=== PATIENT | female | born 1985 | race Caucasian/White ===

== ENCOUNTER 2016-04-19 12:47 | Emergency (ER) ==
[2016-04-19 12:59] VITALS: BP 111/72
[2016-04-19] MEDS ORDERED: NS 500 ML IV ONE (13:22)
[2016-04-19] MEDS ORDERED: PHENERGAN IV ONE (13:22)
[2016-04-19] MEDS ORDERED: SODIUM CHLORIDE 0.9% INJ ONE ×2 (13:22→14:43)
[2016-04-19] MEDS ORDERED: TORADOL IV ONE (13:22)
[2016-04-19 13:45] LABS: MANUAL DIFF NEEDED? NO
[2016-04-19 13:46] LABS: BASO% 0.1 % (0.0-0.8); EOS# 0.16 X1000 (0.0-0.7); EOS% 1.5 % (0.0-10.0); HEMATOCRIT 40.3 % (37.0-47.0); HEMOGLOBIN 13.9 g/dL (12.0-16.0); IMM GRAN# 0.02 X1000 (0.0-0.04); IMM GRAN% 0.2 % (0.0-0.5); LYMPH# 2.52 X1000 (1.2-3.4); MCH 31.1 PG (27-31); MCHC 34.5 g/dL (33-37); MCV 90.2 FL (81-99); MONO% 6.7 % (1.7-9.3); MPV 10.2 FL (7.4-10.4); NEUT% 67.5 % (42.2-75.2); PLT 209 X1000 (130-400); RBC 4.47 XMIL (4.2-5.4)
--- NOTE | 2016-04-19 13:46 | PROVIDER DOCUMENTATION ---
HPI-Abdominal Pain/GI Problem - General Chief Complaint: Abdominal Pain Stated Complaint: "GALLBLADDER ATTACK" Time Seen by Provider: 04/19/16 13:10 Source: patient Allergies/Adverse Reactions: Patient Allergies Allergy/AdvReac Type Severity Reaction Status Date / Time hydrocodone AdvReac NAUSEA/VOMI Verified 04/19/16 12:59 TING Home Medications: Home Medication List Medication Instructions Recorded Confirmed Last Taken Type Gabapentin [Neurontin] 300 mg PO TID #90 capsule 03/21/16 04/19/16 Unknown Rx Ibuprofen 800 mg PO DIRECTED 04/19/16 04/19/16 Unknown History Methocarbamol 750 mg PO DAILY 04/19/16 04/19/16 Unknown History - History of Present Illness-ABD Nature of Presenting Problems: Pt is 30 y/o F presents to the ED with generalized abdominal pain. Pt states the pain is worse in the RUQ. Pt denies N/V/D. Pt states having a F. Pt states she is on her period. Abdominal Pain Onset Location: reports: RUQ (worse), generalized abdomen Quality of Pain: reports: aching, burning, cramping Severity in ED: reports: moderate Onset/Duration: reports: 24 hours ago Timing: reports: still present, intermittent Activities at Onset: reports: light activity Exposure to sick contacts?: No Modifying Factors: improves with: nothing Associated Symptoms: reports: fever/chills (F) Last BM: unsure Dark Stools Present?: reports: none noticed Rectal Bleeding: reports: none Rectal Pain: reports: none Emesis Description: reports: none Bruising or Bleeding Gums?: No Similar Symptoms Previously?: Yes Recently seen or treated by another doctor?: No Review of Systems - Adult - REVIEW OF SYSTEMS - ADULT Constitutional: reports: fever. denies: chills Eyes: denies: blurred vision, double vision Ears, Nose, Mouth & Throat: denies: ear pain, nose pain, throat pain Cardiovascular: denies: chest pain, heart murmur, irregular heart rate Respiratory: denies: cough, shortness of breath, wheezing Gastrointestinal: reports: abdominal pain. denies: diarrhea, nausea, vomiting Genitourinary: denies: dysuria, hematuria Musculoskeletal: denies: bone pain, joint pain, joint swelling, neck pain Integumentary: denies: hives, itching Neurological: denies: dizziness/vertigo, headache/migraines Psychiatric: reports: no symptoms reported Endocrine: reports: no symptoms reported Hematologic/Lymphatic: reports: no symptoms reported Allergic/Immunologic: reports: no symptoms reported All Other Systems: Reviewed and Negative Past History - Adult - PAST MEDICAL HISTORY-ADULT Review of Records: reports: Nursing Assessment Review, Medications Reviewed, Social history reviewed & non-contributory. Major Childhood Illnesses: reports: denies history Cardiovascular: reports: denies history Respiratory: reports: denies history Gastrointestinal: reports: denies history Obstetrical/Gynecological: reports: endometriosis Genitourinary: reports: denies history Musculoskeletal: reports: fibromyalgia Neurological: reports: denies history Endocrine/Immune: reports: denies history Other Conditions: reports: denies history Additional History: Fibromyalgia - PRIOR SURGERIES/PROCEDURES Surgical/Procedure History: reports: , tonsillectomy, other ( Laproscopic RSO, D&C) - PRIOR HOSPITALIZATIONS Prior Hospitalizations: reports: for other non-related - IMMUNIZATION STATUS Childhood Immunizations: See Nurse Assessment Flu Vaccine: See Nurse Assessment - FAMILY HISTORY Family History: reviewed, not pertinent - SOCIAL HISTORY Smoking: cigarettes, less than 1 pack/day Provider spent 3-5 mins advising pt. on dangers of tobacco.: Discussed manners to quit use, and f/u contacts for add'l counseling. Substance Use: alcohol Alcohol Use Frequency: occasionally Number of drinks per typical drinking period:: 2 drinks Living Situation: family Physical Exam-General - PHYSICAL EXAM-ADULT Initial Vital Signs Reviewed: Yes - CONSTITUTIONAL General Appearance: alert, mild distress - EYES Eyes: PERRL/EOMI, pink conjunctivae, fundi clear, no AV nicking - HEAD, EARS, NOSE, MOUTH & THROAT HENMT: normocephalic/atraumatic, moist mucous membranes, normal ENT inspection, TMs normal, pharynx normal - NECK Neck: non-tender, full range of motion, supple, normal inspection - RESPIRATORY Respiratory: chest non-tender, lungs clear, normal breath sounds, no pleuratic chest pain, no respiratory distress, no accessory muscle use - CARDIOVASCULAR Cardiovascular: normal peripheral pulses, regular rate, rhythm, no edema, no gallop, no JVD, no murmur - GASTROINTESTINAL (ABDOMEN) Abdominal Exam: normal bowel sounds, soft, no organomegaly, no pulsatile mass, tenderness (generalized but worse in RUQ) - LYMPHATIC Lymphatic: no adenopathy - MUSCULOSKELETAL Back Exam: normal inspection, no CVA tenderness, no vertebral tenderness Extremity: normal range of motion, non-tender, normal gait, normal inspection, no pedal edema, no calf tenderness, normal capillary refill, pelvis stable - SKIN Integumentary: normal color, normal turgor, warm/dry - NEUROLOGIC 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: 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01 Orders Category Date Time Status IV Insertion ORDERED Care 04/19/16 13:21 Active CBC WITH ELECTRONIC DIFF [HEME] Stat Lab 04/19/16 13:38 Completed CMP [COMPREHENSIVE METABOLIC PANEL] [CHEM] Stat Lab 04/19/16 13:[address] W/POSS RFLX CULT [URINALYSIS] Stat Lab 04/19/16 13:21 Uncollected 0.9% Sodium Chloride Inj [Ns] 500 ml Med 04/19/16 13:22 Active IV 999 mls/hr Ketorolac [Toradol] Med 04/19/16 13:22 Discontinued 30 mg IV NOW ONE Promethazine [Phenergan] Med 04/19/16 13:22 Discontinued 12.5 mg IV NOW ONE Sodium Chloride 0.9% Med 04/19/16 13:22 Discontinued 10 ml INJ NOW ONE Vital Signs - 24 hr 04/19/16 12:55 Temperature 98.8 F Pulse Rate 81 Respiratory 18 Rate Blood Pressure 111/72 O2 Sat by Pulse 100 Oximetry Laboratory Tests 04/19/16 04/19/16 13:38 13:38 WBC 10.50 RBC 4.47 Hgb 13.9 Hct 40.3 MCV 90.2 MCH 31.1 H MCHC 34.5 RDW Std Deviation 13.0 Plt Count 209 MPV 10.2 Immature Gran % (Auto) 0.2 Neut % (Auto) 67.5 Lymph % (Auto) 24.0 Sawyer % (Auto) 6.7 Eos % (Auto) 1.5 Baso % (Auto) 0.1 Immature Gran # (Auto) 0.02 Neut # (Auto) 7.09 H Lymph # (Auto) 2.52 Sawyer # (Auto) 0.70 H Eos # (Auto) 0.16 Baso # (Auto) 0.01 Sodium 140 Potassium 4.0 Chloride 105 Carbon Dioxide 23 L Anion Gap 12 BUN 10 Creatinine 0.8 Estimated GFR/1.73 m2 > 60 BUN/Creatinine Ratio 13 Glucose 90 Calculated Osmolality 278 Calcium 9.6 Total Bilirubin 0.80 AST 23 ALT 14 Alkaline Phosphatase 70 Total Protein 7.1 Albumin 4.4 Globulin 3.0 Albumin/Globulin Ratio 2.0 Laboratory Tests 04/19/16 04/19/16 04/19/16 13:38 13:38 15:30 WBC 10.50 RBC 4.47 Hgb 13.9 Hct 40.3 MCV 90.2 MCH 31.1 H MCHC 34.5 RDW Std Deviation 13.0 Plt Count 209 MPV 10.2 Immature Gran % (Auto) 0.2 Neut % (Auto) 67.5 Lymph % (Auto) 24.0 Sawyer % (Auto) 6.7 Eos % (Auto) 1.5 Baso % (Auto) 0.1 Immature Gran # (Auto) 0.02 Neut # (Auto) 7.09 H Lymph # (Auto) 2.52 Sawyer # (Auto) 0.70 H Eos # (Auto) 0.16 Baso # (Auto) 0.01 Sodium 140 Potassium 4.0 Chloride 105 Carbon Dioxide 23 L Anion Gap 12 BUN 10 Creatinine 0.8 Estimated GFR/1.73 m2 > 60 BUN/Creatinine Ratio 13 Glucose 90 Calculated Osmolality 278 Calcium 9.6 Total Bilirubin 0.80 AST 23 ALT 14 Alkaline Phosphatase 70 Total Protein 7.1 Albumin 4.4 Globulin 3.0 Albumin/Globulin Ratio 2.0 Urine Source CLEAN CATCH Urine Color YELLOW Urine Clarity CLEAR Urine pH 6.5 Ur Specific [place] 1.005 Urine Protein TRACE A Urine Ketones NEGATIVE Urine Blood 4+ Urine Nitrite NEGATIVE Urine Bilirubin NEGATIVE Urine Urobilinogen NORMAL Urine Microscopic RBC 10-20 A Urine WBC TRACE A Urine Microscopic WBC <10 Ur Epithelial Cells >10 A Urine Glucose NEGATIVE - REASSESSMENT Reassessment #1 Time Reassessed: 14:59 (Dr. 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 Departure - Departure Time of Disposition Order: 16:29 DIAGNOSIS: Abdominal pain Qualifiers: Abdominal location: unspecified location Qualified Code(s): R10.9 - Unspecified abdominal pain Disposition: HOME 01 Certified Medical Emergency: Emergent Condition: Stable Additional Instructions: ED Follow Up Instructions: You have been treated by a care provider in the Emergency Department. These instructions are being provided to you so you can have an understanding of how to care for yourself upon discharge. Upon discharge from the Emergency Department, you are responsible for making arrangements for follow-up care by a physician of your choice. Take all prescribed medications as directed. Return to the Emergency Department immediately for any new or worsening symptoms. You may call the Physician Referral phone number at [phone] to obtain a list of Physicians who are taking new patients. Attestation - Scribe Verification/Attestation Scribe:: Amairani Andujar Acting as Scribe for:: Catrachita Luna Scribe documention review:: This chart was documented by a scribe and accurately reflects the service the provider performed and the decisions made by the provider.
[2016-04-19 14:06] LABS: AGAP 12; ALBUMIN 4.4 g/dL (3.5-5.0); ALKALINE PHOSPHATASE 70 U/L (32-104); BUN 10 mg/dL (8-22); CALCIUM 9.6 mg/dL (8.8-10.2); CHLORIDE 105 mmol/L (98-107); COSMO 278; GOT 23 U/L (10-30); GPT 14 U/L (10-36); SODIUM 140 mmol/L (136-145); TCO2 23 mmol/L (25-35); TOTAL PROTEIN 7.1 g/dL (6.3-8.3)
[2016-04-19] MEDS ORDERED: ZYRTEC PO ONE (14:42)
[2016-04-19] MEDS ORDERED: EPINEPHRINE SUBQ ONE (14:42)
[2016-04-19] MEDS ORDERED: PROTONIX IV ONE (14:43)
[2016-04-19] MEDS ORDERED: BENADRYL PO ONE (14:43)
[2016-04-19 15:54] LABS: URINE CULTURE PL NEEDED? NO; URINE SOURCE CLEAN CATCH
[2016-04-19 16:08] LABS: BILIRUBIN URINE NEGATIVE (NEGATIVE); BLOOD URINE 4+ (NEGATIVE); CLARITY CLEAR (CLEAR); COLOR YELLOW; GLUCOSE URINE NEGATIVE (NEGATIVE); LEUKOCYTES URINE TRACE (NEGATIVE); NITRITE URINE NEGATIVE (NEGATIVE); PH URINE 6.5; PROTEIN URINE TRACE mg/dL (NEGATIVE); SP GRAVITY URINE 1.005; UROBILINOGEN URINE NORMAL
--- NOTE | 2016-04-19 16:10 | Diag Imaging Result Document ---
PROCEDURE NAME: ABDOMEN/PELVIS W/CONTRAST - 04/19/2016 CT ABDOMEN PELVIS WITH IV CONTRAST ONLY: FINDINGS: Exam performed with intravenous contrast only per request of the referring provider. A dose reduction protocol was used. Compared with the without contrast exam of . The visualized lung bases appear clear except for slight dependent atelectasis. There are no substantial abnormalities of the liver, adrenal glands, or pancreas identified. The spleen is normal size and demonstrates mildly heterogeneous enhancement diffusely. The heterogeneous enhancement is likely an artifact of the ejection timing. There is no discrete focal splenic lesion identified. There are no calcified gallstones or pericholecystic inflammation identified. The bilateral kidneys enhance homogeneously. There is no hydronephrosis. There are no substantially enlarged lymph nodes identified. There is no evidence of bowel obstruction. There is unopacified bowel of the right lower quadrant, but there is no pericecal inflammation identified, and there is apparent air visible in the lumen of the appendix. There is no substantial bowel wall thickening identified. There is no abscess identified. There is no free air. Images of pelvis show no abnormal mass. There is no substantial free fluid seen. There has been previous right oophorectomy. IMPRESSION: 1. Diffusely mildly heterogeneous attenuation of spleen which is likely be artifactual. There is no discrete focal splenic lesion identified. 2. No bowel obstruction. No indication of appendicitis. 3. No abscess. No free air. 4. No calcified gallstones. No hydronephrosis. [facility]
[2016-04-19 16:13] LABS: URINE EPITHELIAL CELLS >10 /HPF (<10); URINE WBC <10 /HPF (<10)
== END 2016-04-19 16:55 | disposition home or self-care (01) ==
LOC: P.ED 12:47
DX: R10.84 Generalized abdominal pain (principal); R10.11 Right upper quadrant pain; R50.9 Fever, unspecified; R10.817 Generalized abdominal tenderness; R10.811 Right upper quadrant abdominal tenderness; M79.7 Fibromyalgia; F17.210 Nicotine dependence, cigarettes, uncomplicated; Z79.899 Other long term (current) drug therapy; Z71.6 Tobacco abuse counseling
CPT/HCPCS: 74177; 80053; 81001; 85025; J1885; J2550; J7040; Q9967

== ENCOUNTER 2016-10-21 02:48 | Observation (INO) ==
[2016-10-21] MEDS ORDERED: TYLENOL PO ONE (03:08)
[2016-10-21] MEDS ORDERED: NS 1,000 ML IV ONE ×4 (03:16→14:30)
[2016-10-21 03:26] LABS: MANUAL DIFF NEEDED? NO
[2016-10-21 03:32] LABS: BASO% 0.1 % (0.0-0.8); EOS# 0.01 X1000 (0.0-0.7); EOS% 0.1 % (0.0-10.0); HEMATOCRIT 44.8 % (37.0-47.0); HEMOGLOBIN 15.5 g/dL (12.0-16.0); IMM GRAN# 0.03 X1000 (0.0-0.04); IMM GRAN% 0.2 % (0.0-0.5); LYMPH# 0.81 X1000 (1.2-3.4); LYMPH% 5.8 % (20.5-51.1); MCH 30.3 PG (27-31); MCHC 34.6 g/dL (33-37); MCV 87.7 FL (81-99); MONO# 1.45 X1000 (0.11-0.59); MONO% 10.3 % (1.7-9.3); MPV 9.7 FL (7.4-10.4); NEUT% 83.5 % (42.2-75.2); PLT 198 X1000 (130-400); RBC 5.11 XMIL (4.2-5.4)
[2016-10-21 03:50] LABS: AGAP 14; ALBUMIN 4.4 g/dL (3.5-5.0); ALKALINE PHOSPHATASE 84 U/L (32-104); BUN 10 mg/dL (8-22); CALCIUM 9.3 mg/dL (8.8-10.2); CHLORIDE 91 mmol/L (98-107); COSMO 262; GOT 9 U/L (10-30); GPT 7 U/L (10-36); POTASSIUM 3.9 mmol/L (3.5-5.1); SODIUM 131 mmol/L (136-145); TCO2 26 mmol/L (25-35); TOTAL PROTEIN 7.6 g/dL (6.3-8.3)
[2016-10-21] MEDS ORDERED: DEMEROL IV ONE ×2 (04:09→05:54)
[2016-10-21] MEDS ORDERED: SODIUM CHLORIDE 0.9% INJ ONE (04:10)
[2016-10-21] MEDS ORDERED: PHENERGAN IV ONE (04:10)
[2016-10-21 05:00] LABS: BILIRUBIN URINE NEGATIVE (NEGATIVE); BLOOD URINE 3+ (NEGATIVE); CLARITY SL. CLOUDY (CLEAR); COLOR YELLOW; GLUCOSE URINE NEGATIVE (NEGATIVE); LEUKOCYTES URINE 1+ (NEGATIVE); NITRITE URINE POSITIVE (NEGATIVE); PROTEIN URINE 1+(30 mg/dL) mg/dL (NEGATIVE); UROBILINOGEN URINE NORMAL
[2016-10-21 05:01] LABS: URINE CULTURE PL NEEDED? YES; URINE EPITHELIAL CELLS <10 /HPF (<10); URINE SOURCE CATH; URINE WBC <10 /HPF (<10)
[2016-10-21 05:08] LABS: UR AMPHETAMINES QUAL PRESUMPTIVE POSITIVE (NONE DETECT); UR BARBITUATES QUAL NONE DETECTED (NONE DETECT); UR BENZODIAZEPIN QUAL NONE DETECTED (NONE DETECT); UR CANNABINOIDS QUAL NONE DETECTED (NONE DETECT); UR COCAINE QUAL NONE DETECTED (NONE DETECT); UR MDMA QUAL NONE DETECTED (NONE DETECT); UR METHADONE QUAL NONE DETECTED (NONE DETECT); UR METHAMPHETAMINE QUAL PRESUMPTIVE POSITIVE (NONE DETECT); UR OPIATES QUAL NONE DETECTED (NONE DETECT); UR OXYCODONE QUAL NONE DETECTED (NONE DETECT); UR PCP QUAL NONE DETECTED (NONE DETECT); UR TCA QUAL NONE DETECTED (NONE DETECT)
--- NOTE | 2016-10-21 05:39 | PROVIDER DOCUMENTATION ---
HPI-General Adult - General Chief Complaint: Generalized Pain Stated Complaint: "SERIOUSLY DEHYDRATED" Time Seen by Provider: 10/21/16 05:31 Source: patient Allergies/Adverse Reactions: Patient Allergies Allergy/AdvReac Type Severity Reaction Status Date / Time tramadol Allergy Unknown Verified 10/21/16 02:59 hydrocodone AdvReac NAUSEA/VOMI Verified 10/21/16 02:59 TING Home Medications: Home Medication List Medication Instructions Recorded Confirmed Last Taken Type NK [No Home Medications] 10/21/16 10/21/16 Unknown History - History of Present Illness -Gen Adult Nature of Presenting Problems: 2 day illness headache poor intake vomited +/- no diarrhea no cough feels dehydrated Location of Pain/Injury: reports: generalized Pain Radiation: reports: no radiation Quality of Pain: reports: aching Severity: reports: moderate Onset/Duration: reports: 2 days ago Timing: reports: still present, getting worse Context/Activities at Onset: reports: none Modifying Factors: improves with: nothing Associated Symptoms: reports: fever/chills, genitourinary problems, headaches, loss of appetite, malaise, muscle aches. denies: cough, diarrhea, rash, shortness of breath Similar Symptoms Previously?: No Recently seen or treated by another doctor?: No Review of Systems - Adult - REVIEW OF SYSTEMS - ADULT Constitutional: reports: chills, fever, fatique, night sweats Eyes: reports: no symptoms reported Ears, Nose, Mouth & Throat: reports: no symptoms reported Cardiovascular: reports: no symptoms reported Respiratory: denies: cough Gastrointestinal: reports: nausea. denies: constipation Genitourinary: reports: flank pain. denies: frequency, urgency Musculoskeletal: reports: back pain Integumentary: reports: no symptoms reported Neurological: reports: headache/migraines Endocrine: reports: no symptoms reported Hematologic/Lymphatic: reports: no symptoms reported Allergic/Immunologic: reports: no symptoms reported Past History - Adult - PAST MEDICAL HISTORY-ADULT Review of Records: reports: Nursing Assessment Review, Medications Reviewed, Social history reviewed & non-contributory. Major Childhood Illnesses: reports: denies history Cardiovascular: reports: denies history Respiratory: reports: denies history Gastrointestinal: reports: denies history Obstetrical/Gynecological: reports: endometriosis Genitourinary: reports: denies history Musculoskeletal: reports: fibromyalgia Neurological: reports: denies history Endocrine/Immune: reports: denies history Other Conditions: reports: denies history Additional History: Fibromyalgia - PRIOR SURGERIES/PROCEDURES Surgical/Procedure History: reports: , tonsillectomy, other ( Laproscopic RSO, D&C) - PRIOR HOSPITALIZATIONS Prior Hospitalizations: reports: for other non-related - IMMUNIZATION STATUS Childhood Immunizations: See Nurse Assessment Flu Vaccine: See Nurse Assessment - FAMILY HISTORY Family History: reviewed, not pertinent - SOCIAL HISTORY Smoking: cigarettes Physical Exam-General - PHYSICAL EXAM-ADULT Initial Vital Signs Reviewed: Yes - CONSTITUTIONAL General Appearance: moderate distress - EYES Eyes: PERRL/EOMI, pink conjunctivae - HEAD, EARS, NOSE, MOUTH & THROAT HENMT: normocephalic/atraumatic, moist mucous membranes, normal ENT inspection, TMs normal, pharynx normal - NECK Neck: non-tender, full range of motion, supple, lymphadenopathy - RESPIRATORY Respiratory: lungs clear, decreased breath sounds - CARDIOVASCULAR Cardiovascular: normal peripheral pulses, regular rate, rhythm - GASTROINTESTINAL (ABDOMEN) Abdominal Exam: soft - LYMPHATIC Lymphatic: no adenopathy - MUSCULOSKELETAL Back Exam: normal inspection Extremity: normal range of motion - SKIN Integumentary: normal color, normal turgor - NEUROLOGIC Neurologic: grossly normal - PSYCHIATRIC Psych/Mental Status: normal mood/affect Progress - PLAN OF CARE/RESULTS Progress/Plan/Lab Results: Vital Signs - 8 hr 10/21/16 02:54 10/21/16 03:14 10/21/16 04:18 Temperature 101.4 F H 99.9 F H Pulse Rate 102 H Respiratory Rate 22 Blood Pressure 106/83 Laboratory Results - last 24 hr 10/21/16 10/21/16 10/21/16 03:10 03:10 03:10 WBC 14.07 H RBC 5.11 Hgb 15.5 Hct 44.8 MCV 87.7 MCH 30.3 MCHC 34.6 RDW Std Deviation 12.6 Plt Count 198 MPV 9.7 Immature Gran % (Auto) 0.2 Neut % (Auto) 83.5 H Lymph % (Auto) 5.8 L [place] % (Auto) 10.3 H Eos % (Auto) 0.1 Baso % (Auto) 0.1 Immature Gran # (Auto) 0.03 Neut # (Auto) 11.76 H Lymph # (Auto) 0.81 L Cecil # (Auto) 1.45 H Eos # (Auto) 0.01 Baso # (Auto) 0.01 Sodium 131 L Potassium 3.9 Chloride 91 L Carbon Dioxide 26 Anion Gap 14 BUN 10 Creatinine 0.8 Estimated GFR/1.73 m2 > 60 BUN/Creatinine Ratio 13 Glucose 95 Calculated Osmolality 262 Calcium 9.3 Total Bilirubin 2.30 H AST 9 L ALT 7 L Alkaline Phosphatase 84 Total Protein 7.6 Albumin 4.4 Globulin 3.0 Albumin/Globulin Ratio 1.0 Plasma Lactate 1.6 Urine Source Urine Color Urine Clarity Urine pH Ur Specific [place] Urine Protein Urine Ketones Urine Blood Urine Nitrite Urine Bilirubin Urine Urobilinogen Urine Microscopic RBC Urine WBC Urine Microscopic WBC Ur Epithelial Cells Urine Bacteria Urine Glucose Urine Opiates Screen Ur Oxycodone Screen Urine Methadone Screen Ur Barbituates Screen Ur Tricyclics Screen Ur Phencyclidine Scrn Ur Amphetamines Screen U Methamphetamines Scrn Urine MDMA Screen U Benzodiazepines Scrn Urine Cocaine Screen U Cannabinoids Screen 10/21/16 10/21/16 04:20 04:20 WBC RBC Hgb Hct MCV MCH MCHC RDW Std Deviation Plt Count MPV Immature Gran % (Auto) Neut % (Auto) Lymph % (Auto) [place] % (Auto) Eos % (Auto) Baso % (Auto) Immature Gran # (Auto) Neut # (Auto) Lymph # (Auto) Cecil # (Auto) Eos # (Auto) Baso # (Auto) Sodium Potassium Chloride Carbon Dioxide Anion Gap BUN Creatinine Estimated GFR/1.73 m2 BUN/Creatinine Ratio Glucose Calculated Osmolality Calcium Total Bilirubin AST ALT Alkaline Phosphatase Total Protein Albumin Globulin Albumin/Globulin Ratio Plasma Lactate Urine Source CATH Urine Color YELLOW Urine Clarity SL. CLOUDY A Urine pH 6.0 Ur Specific [place] 1.010 Urine Protein 1+(30 mg/dL) A Urine Ketones 2+(Moderate) A Urine Blood 3+ A Urine Nitrite POSITIVE A Urine Bilirubin NEGATIVE Urine Urobilinogen NORMAL Urine Microscopic RBC 10-20 A Urine WBC 1+ A Urine Microscopic WBC <10 Ur Epithelial Cells <10 Urine Bacteria 4+ Urine Glucose NEGATIVE Urine Opiates Screen NONE DETECTED Ur Oxycodone Screen NONE DETECTED Urine Methadone Screen NONE DETECTED Ur Barbituates Screen NONE DETECTED Ur Tricyclics Screen NONE DETECTED Ur Phencyclidine Scrn NONE DETECTED Ur Amphetamines Screen PRESUMPTIVE POSITIVE A U Methamphetamines Scrn PRESUMPTIVE POSITIVE A Urine MDMA Screen NONE DETECTED U Benzodiazepines Scrn NONE DETECTED Urine Cocaine Screen NONE DETECTED U Cannabinoids Screen NONE DETECTED Orders Category Date Time Status Mini Cath [Straight Catheterization] ORDERED Care 10/21/16 04:27 Active Saline Loc NOW Care 10/21/16 03:09 Active cxr [CHEST-2 VIEWS] [RAD] Stat Exams 10/21/16 03:08 Taken BLOOD CULTURE [BLDCUL] Stat Lab 10/21/16 03:07 Ordered CBC WITH DIFF [HEME] Stat Lab 10/21/16 03:10 Completed CMP [COMPREHENSIVE METABOLIC PANEL] [CHEM] Stat Lab 10/21/16 03:10 Completed LACTATE, PLASMA [CHEM] Stat Lab 10/21/16 03:10 Completed UDS [URINE DRUG SCREEN PL] Stat Lab 10/21/16 04:20 Completed URINE CULTURE [RM] Routine Lab 10/21/16 05:02 Ordered ua [URINALYSIS PL W/POSS RFLX CULT] [URINALYSIS] Stat Lab 10/21/16 04:20 Completed 0.9% Sodium Chloride Inj [Ns] 1,000 ml Med 10/21/16 03:16 Discontinued IV 999 mls/hr Acetaminophen [Tylenol] Med 10/21/16 03:08 Discontinued 1,000 mg PO NOW ONE Meperidine [Demerol] Med 10/21/16 04:09 Discontinued 12.5 mg IV NOW ONE Promethazine [Phenergan] Med 10/21/16 04:10 Discontinued 25 mg IV NOW ONE Sodium Chloride 0.9% Med 10/21/16 04:10 Discontinued 10 ml INJ NOW ONE Result Diagrams: 10/21/16 03:10 10/21/16 03:10 - REASSESSMENT Reassessment #1 Time Reassessed: 06:32 Status: improving (Pt reports she feels 100% better. Walked to bathroom and urinated. Denies recent travel/hunting/tick bite. Denies RICH/neck stiffness. 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 Sounds like this might not be false positive UDS from OTC meds. IV Rocephin and Doxy given. Will probably d/c home after the Tx. Regualr diet ordered as well.) - XRAY 1 XRAY Study: Chest Impression: Normal - CONSULTS/PCP/HOSPITALIST Notification #1 *Consult/PCP/Hospitalist*: Dr. Penot Time Discussed: 08:34 Consult Disposition: Will see in ED, Admit Departure - Departure Date of Disposition Decision: 10/21/16 Time of Disposition Decision: 08:35 DIAGNOSIS: Pyelonephritis Disposition: ADMITTED INPATIENT 09 Certified Medical Emergency: Emergent Condition: Stable Referrals and Follow-Ups: None,PCP [Primary Care Provider] - - Critical Care Note This patient required my direct & personal management of CC.: No Attestation - Physician/ SHANTI Attestation Patient care was provided by Advanced Practice Provider:: No The physician spent face to face time with patient:: Yes Advanced Practice Provider documentation review:: Supervising physician onsite and consulted in the evaluation and care of this patient. The physician did have a face to face encounter with the patient.
[2016-10-21] MEDS: DOXYCYCLINE 100 MG in NS 250 ML IV ONE ×2 (06:16→07:02)
[2016-10-21] MEDS ORDERED: ROCEPHIN 1 GM in NS 50 ML IV ONE (06:16)
[2016-10-21] MEDS ORDERED: DOXYCYCLINE PO ONE (07:21)
--- NOTE | 2016-10-21 07:51 | Diag Imaging Result Doc PS360 ---
EXAM: CHEST-2 VIEWS INDICATION: pain TECHNIQUE: 2 views COMPARISON: 12/25/2012 FINDINGS: The lungs are grossly clear. There is no discrete pleural fluid collection or pneumothorax. The cardiomediastinal silhouette and central vasculature are grossly unremarkable. IMPRESSION: No evidence of acute pathology by plain radiograph. Electronically signed by Lion Brown 10/21/2016 7:49 AM
[2016-10-21] MEDS ORDERED: MOTRIN PO ONE (07:52)
[2016-10-21] MEDS ORDERED: OFIRMEV 1000 MG/ISOTONIC SOLN 1,000 MG/100 ML BOTTLE IV ONE (09:10)
--- NOTE | 2016-10-21 09:14 | Diag Imaging Result Doc PS360 ---
EXAM: CT ABD/PELVIS W/ IV CONT ONLY INDICATION: R flank pain with fever TECHNIQUE: Dose reduction protocol was used. COMPARISON: 04/19/2016 FINDINGS: There is a striated nephrogram on the right with perinephric fluid consistent with pyelonephritis. There is no hydronephrosis. The right ureter is very mildly prominent as compared to the left. At the anterior aspect of the left kidney there is a small focus of poor enhancement which may represent much milder pyelonephritis on the left as well. This can be seen on image 67 and 68. The urinary bladder is unremarkable. The appendix is normal. There is a 1.7 cm functional cyst involving the left ovary. The liver, spleen, adrenal glands, pancreas, and the remainder of the GI tract is essentially unremarkable. IMPRESSION: Right pyelonephritis and questionable left pyelonephritis that is much milder. Electronically signed by Lion Brown 10/21/2016 9:11 AM
[2016-10-21] MEDS ORDERED: ATIVAN IV ONE (09:31)
[2016-10-21] MEDS ORDERED: ZOFRAN IV PRN (10:56)
[2016-10-21] MEDS: NS 1,000 ML IV SCH ×2 (10:59→22:22)
--- NOTE | 2016-10-21 11:26 | HISTORY AND PHYSICAL ---
PRIMARY CARE PHYSICIAN: None. CHIEF COMPLAINT: Fever, headache, vomiting, and abdominal pain for the past 2 days that has progressively worsened. HISTORY OF PRESENTING ILLNESS: This is a 31-year-old, female who presents to [facility] ER with complaints of abdominal pain, vomiting, fever, and headache for 2 days that has progressively worsened. Workup in the ER showed a temperature of 101.4 degrees. White blood cell count showed 14.07. Sodium was 131. Urinalysis showed positive nitrites, 1+ white blood cells, and 4+ bacteria. CT of the abdomen and pelvis showed a right pyelonephritis and a questionable left pyelonephritis that is much milder. It is noted that she has become tachycardic since arriving, highest around 130 and now down to 118 currently. She is being admitted to the intensive care unit for further evaluation and treatment. PAST MEDICAL HISTORY: Fibromyalgia and endometriosis. PAST SURGICAL HISTORY: Tonsillectomy. FAMILY HISTORY: Noncontributory. SOCIAL HISTORY: She currently lives alone. She smokes 1-2 cigarettes a day. Denied any alcohol or drug use despite the fact that it was noted that she had a presumptive positive for amphetamines and methamphetamines so I am not sure if that is a false positive at this time or not. As she improves, we will discuss this more with her at that time. LABORATORY DATA: Showed a white blood cell count of 14.07, hemoglobin 15.5, hematocrit 44.8, platelets 198,000. Sodium 131, potassium 3.9, chloride 91, CO2 26, BUN of 10, creatinine 0.8, glucose 95. Urinalysis showed positive nitrites, 1+ white blood cells, and 4+ bacteria. Urine drug screen was presumptive positive for amphetamines and methamphetamines. Urine culture and blood cultures x2 are pending. A CT of the abdomen and pelvis showed a right pyelonephritis and questionable left pyelonephritis that is much milder. Chest x-ray showed no evidence of an acute pathology by plain radiographs. REVIEW OF SYSTEMS: She is positive for fever and chills. Denies any blurred vision, dizziness, chest pain, coughing, shortness of breath. She is positive for some abdominal pain, nausea, vomiting, headache. She does have some dysuria. PHYSICAL EXAMINATION: Vital Signs: On arrival, she had a temperature of 101.4 degrees, respirations 20, pulse 102, blood pressure 106/83. Approximately 1 hour ago, her temperature went up to 102.7. She was tachycardic in the 120s and 130s. Blood pressure has decreased slightly at 103/ 56 currently. General: This is a 31-year-old, female who is lying in the bed and answers questions appropriately. HEENT: Normocephalic and atraumatic. Pupils are equal, round, and reactive to light. The extraocular movements are intact. The oropharynx and nares are clear. Neck: Supple. Lungs: Clear to auscultation bilaterally with equal lung expansion and chest wall movement. Heart: With regular rate and rhythm. No murmurs, rubs, or gallops. Abdomen: Soft, nontender, nondistended. Bowel sounds are present x4 quadrants. Extremities: No clubbing , cyanosis, or edema. Neurological: The cranial nerves 2-12 appear grossly intact. ASSESSMENT: 1. Bilateral pyelonephritis. 2. Sepsis. 3. Mild hyponatremia. 4. Tobacco abuse. PLAN: She will be admitted to the intensive care unit. Placed on telemetry. Regular diet. We will obtain a urine culture. She is getting normal saline at 125 mL an hour. In the emergency room, she received doxycycline 100 mg IV x1. We will give Demerol 25 mg IV q.4 p.r.n., Zofran 4 mg IV q.4 hours p.r.n. We will recheck a CBC and a BMP in the a.m. We will give Tylenol IV every 6 p.r.n. Dictated by DONNA Victor for Rikki Interiano MD cc: DONNA Victor MD pt seen face to face, examined, reviewed chart, has abdominal and flank pain, fever, tachycardia, hypotension, therefore she is septic and needs to be watched in unit very closely, continue abx, volume resuscitation and pressors if needed APENOT MTDD
[2016-10-21] MEDS ORDERED: DOPAMINE 800 MG/D5W (PARKWAY ONLY!) 800 MG/250 ML IV.SOLN IV SCH (14:45)
[2016-10-21] MEDS: DOXYCYCLINE 100 MG in NS 250 ML IV SCH (18:27)
[2016-10-21] MEDS: DEMEROL IV PRN ×2 (19:45→23:03)
[2016-10-21] MEDS ORDERED: NICODERM PATCH TD PRN (20:34)
[2016-10-21] MEDS: OFIRMEV 1000 MG/ISOTONIC SOLN 1,000 MG/100 ML BOTTLE IV PRN (21:36)
[2016-10-21] MEDS: ATIVAN IV PRN (21:39)
[2016-10-22] MEDS: NS 1,000 ML IV SCH ×2 (03:33→17:50)
[2016-10-22] MEDS: DEMEROL IV PRN ×2 (04:22→11:03)
[2016-10-22] MEDS: ATIVAN IV PRN (04:23)
[2016-10-22] MEDS: OFIRMEV 1000 MG/ISOTONIC SOLN 1,000 MG/100 ML BOTTLE IV PRN ×2 (04:24→12:43)
[2016-10-22] MEDS: DOXYCYCLINE 100 MG in NS 250 ML IV SCH (06:23)
[2016-10-22 06:30] LABS: MANUAL DIFF NEEDED? NO
[2016-10-22 06:53] LABS: BASO% 0.1 % (0.0-0.8); EOS# 0.07 X1000 (0.0-0.7); EOS% 0.7 % (0.0-10.0); HEMATOCRIT 36.1 % (37.0-47.0); HEMOGLOBIN 12.1 g/dL (12.0-16.0); IMM GRAN# 0.02 X1000 (0.0-0.04); IMM GRAN% 0.2 % (0.0-0.5); LYMPH# 0.93 X1000 (1.2-3.4); LYMPH% 9.5 % (20.5-51.1); MCH 29.7 PG (27-31); MCHC 33.5 g/dL (33-37); MCV 88.7 FL (81-99); MONO# 1.61 X1000 (0.11-0.59); MONO% 16.5 % (1.7-9.3); MPV 9.8 FL (7.4-10.4); PLT 144 X1000 (130-400); RBC 4.07 XMIL (4.2-5.4)
[2016-10-22 06:54] LABS: AGAP 9; BUN 7 mg/dL (8-22); CALCIUM 7.8 mg/dL (8.8-10.2); CHLORIDE 101 mmol/L (98-107); COSMO 266; SODIUM 133 mmol/L (136-145); TCO2 23 mmol/L (25-35)
[2016-10-22] MEDS ORDERED: ROCEPHIN 1 GM in NS 50 ML IV SCH (08:00)
[2016-10-22] MEDS ORDERED: KLOR-CON PO ONE (10:50)
[2016-10-22 13:08] LABS: ALBUMIN 2.9 g/dL (3.5-5.0); ALKALINE PHOSPHATASE 69 U/L (32-104); DIRECT BILIRUBIN < 0.20 mg/dL (0.00-0.20); GOT 13 U/L (10-30); GPT 10 U/L (10-36); TOTAL PROTEIN 5.5 g/dL (6.3-8.3)
[2016-10-22] MEDS ORDERED: GENTAMICIN IV PER PHARMACY MISC SCH (13:30)
[2016-10-22] MEDS ORDERED: GENTAMICIN 300 MG in NS 150 ML IV SCH (14:30)
[2016-10-22 16:27] VITALS: BP 123/95
[2016-10-22 23:19] LABS: TICK BORNE AB SEE COMMENTS
--- NOTE | 2016-10-23 17:42 | DISCHARGE SUMMARY ---
ADMISSION DATE: 10/21/2016 DISCHARGE DATE: 10/22/2016 DISCHARGE DIAGNOSIS: Pyelonephritis also sepsis, pyelonephritis with a gram-negative bria. ADMISSION DIAGNOSIS: Pyelonephritis with sepsis. HISTORY OF PRESENT ILLNESS: Briefly this is a 31-year-old female, no major medical problems. She was admitted on the . She was tachycardic when she came in, febrile, in any case she was admitted for sepsis and pyelonephritis. She had a temperature of a 101.4 degrees. Heart rate was in the 130s, T-max was 102.7 degrees. She had a white count of 14,000, her micro showed positive urine culture but not blood culture. In any case she wanted to go home the day of admission but I discussed with her that she could leave AMA because she was not well enough, I did feel that her acute sepsis phase had improved, her heart rate at that time was in the 90s, blood pressure had increased to the 1 teens over 70s and I felt stable sending her home. The patient did have a temperature this morning of 100.6 but no fever since the night before around 8 p.m. Clinically she stabilized, white count has improved down to 9.7. She did have a urine drug screen that was positive for amphetamines and methamphetamines but she denied usage of those drugs. There is documentation in the ER record that her father was concerned because she had 3 children that she had been acting strangely. In any case patient had pyelonephritis, she was admitted the following day though she really had resolved, she was very adamant about going home again. She stated if she stayed another night she would leave AMA. At this point she was afebrile, her heart rate was in the 80s, last blood pressure was at 4:20, temperature was at 4:20 and it was 100.6, she has had several liters of fluid, doxycycline and Rocephin. I felt stable that she could be discharged on Omnicef at this point. She was tolerating p.o. without difficulty. She was told that she could still have some fevers and that she could take Tylenol and ibuprofen for them. DISCHARGE MEDICATIONS: Omnicef 300 p.o. b.i.d. for another 10 days and Zofran p.r.n. TIME SPENT: 32 minute discharge. This is a service admission. cc: Rikki Interiano MD
== END 2016-10-22 20:15 | disposition left against medical advice (07) ==
LOC: P.ED 02:48 → INTOOBSV 02:49 → P.MEDSURG 09:58 → P.ICU 13:30 → P.MEDSURG 22:22
PROVIDERS: ATTEND Internal Medicine